=== PATIENT | male | born 1965 | race Caucasian/White ===

== ENCOUNTER 2018-03-18 11:33 | Inpatient (IN) | payer OTHER ==
[~2018-03-18] VITALS: Ht 175.3 cm; Wt 72.6 kg
[2018-03-18 11:35] VITALS: BP 100/65
[2018-03-18 11:58] LABS: ABSOLUTE BASOPHILS 0.1 thou/uL (0.0-0.2); ABSOLUTE LYMPHOCYTES 2.3 thou/uL (0.8-5.3); ABSOLUTE MONOCYTES 0.8 thou/uL (0.0-1.2); ABSOLUTE NEUTROPHILS 7.7 thou/uL (1.6-8.1); BASOPHILS 0.5 %; EOSINOPHILS 0.4 %; HEMATOCRIT 44.7 % (42.0-52.0); HEMOGLOBIN 15.3 gm/dL (14.0-18.0); LYMPHOCYTES 21.5 %; MCH 32.1 pg (26.0-34.0); MCHC 34.2 g/dL (28.0-37.0); MCV 93.9 fL (80.0-100.0); MONOCYTES 7.2 %; MPV 8.4 fl. (7.2-11.1); NUCLEATED RBCS 0 /100WBC; PLATELET COUNT* 251 thou/uL (150-400); POLYS 70.4 %; RBC 4.76 mil/uL (4.50-6.00); RDW-CV 14.5 % (10.5-14.5); WBC 10.9 thou/uL (4.0-11.0)
[2018-03-18 12:10] LABS: APTT 30.6 Seconds (25.0-31.3); PROTIME 10.2 Seconds (9.20-11.50)
[2018-03-18 12:17] LABS: ANION GAP 13 mmol/L (7-16); BUN 44 mg/dL (7-18); CALCIUM 8.2 mg/dL (8.5-10.1); CHLORIDE 100 mmol/L (98-107); CO2 26 mmol/L (21-32); CREATININE 3.9 mg/dL (0.6-1.3); GLUCOSE 114 mg/dL (70-99); POTASSIUM 3.9 mmol/L (3.5-5.1); SODIUM 139 mmol/L (136-145)
[2018-03-18 12:32] LABS: ALBUMIN 3.5 g/dL (3.4-5.0); ALKALINE PHOSPHATASE 148 U/L (46-116); NT-PRO BRAIN NAT PEPTIDE 222 pg/mL (<300); SGOT 21 U/L (15-37); SGPT 22 U/L (30-65); TOTAL BILIRUBIN 0.4 mg/dL (<0.1-1.0); TOTAL PROTEIN 7.3 g/dL (6.4-8.2); TROPONIN-I LEVEL <0.06 ng/mL (<0.06)
[2018-03-18 13:15] VITALS: BP 120/77
[2018-03-18 13:17] VITALS: BP 120/77
[2018-03-18 14:45] LABS: CALCIUM 7.2 mg/dL (8.5-10.1); MAGNESIUM 2.1 mg/dL (1.8-2.4); PHOSPHORUS* 6.2 mg/dL (2.5-4.9)
[2018-03-19 03:23] VITALS: BP 100/63
[2018-03-19 04:19] LABS: HEMATOCRIT 40.6 % (42.0-52.0); HEMOGLOBIN 13.7 gm/dL (14.0-18.0); MCH 32.1 pg (26.0-34.0); MCHC 33.7 g/dL (28.0-37.0); MCV 95.5 fL (80.0-100.0); MPV 8.2 fl. (7.2-11.1); RBC 4.26 mil/uL (4.50-6.00); RDW-CV 14.5 % (10.5-14.5); WBC 9.3 thou/uL (4.0-11.0)
[2018-03-19 04:29] LABS: CALCIUM 7.7 mg/dL (8.5-10.1); CREATININE 1.3 mg/dL (0.6-1.3); MAGNESIUM 2.1 mg/dL (1.8-2.4); POTASSIUM 4.1 mmol/L (3.5-5.1)
[2018-03-19 07:45] VITALS: BP 125/72
--- NOTE | 2018-03-19 14:43 | EKG ---
[place] [address] ELECTROCARDIOGRAM REPORT Name: RACHAELYOKO Room: [address] IN [facility].#: [id number] Admission: 03/18/18 Attend Phys: Tone Zapien, Discharge: Date of : 63 Report #: [id number] THIS REPORT FOR: //name// [facility] ED Test Date: 2018-03-18 Test Time: 11:36:19 Pat Name: YOKO CANO Department: Room: Gender: M [employer]: Ashlie ANDRADE : 1965 Requested By: Edwar Navas Order Number: [id number] MD: Daniel Borjas Measurements Intervals [place] Rate: 104 P: 82 FL: 129 QRS: -76 QRSD: 80 T: 56 QT: 368 QTc: 484 Interpretive Statements Sinus tachycardia Left anterior fascicular block ST elev, probable normal early repol pattern Borderline prolonged QT interval No previous ECG available for comparison Electronically Signed On 03-19-2018 14:43:47 CDT by Daniel Borjas [email or web address] <ELECTRONICALLY SIGNED> By: Daniel Borjas MD, [facility] 03/19/18 1443 1136 [id number] Daniel Borjas MD, [facility] /EPI
[2018-03-19 17:00] VITALS: BP 109/58
[2018-03-19 23:53] VITALS: BP 125/80
[2018-03-20 03:45] LABS: HEMATOCRIT 39.4 % (42.0-52.0); HEMOGLOBIN 13.3 gm/dL (14.0-18.0); MCH 32.3 pg (26.0-34.0); MCHC 33.9 g/dL (28.0-37.0); MCV 95.4 fL (80.0-100.0); MPV 8.9 fl. (7.2-11.1); RBC 4.13 mil/uL (4.50-6.00); WBC 9.2 thou/uL (4.0-11.0)
[2018-03-20 03:56] LABS: CALCIUM 8.1 mg/dL (8.5-10.1); CREATININE 0.9 mg/dL (0.6-1.3); MAGNESIUM 1.6 mg/dL (1.8-2.4); PHOSPHORUS* 2.1 mg/dL (2.5-4.9); POTASSIUM 4.2 mmol/L (3.5-5.1)
[2018-03-20 04:20] VITALS: BP 125/84
[2018-03-20 08:00] VITALS: BP 118/63
[2018-03-20 14:23] VITALS: BP 118/63
--- NOTE | 2018-04-01 13:13 | CON ---
[address] [address] CONSULTATION Name: YOKO CANO Room: [address] M.R.#: [id number] Admission: 03/18/18 Attend Phys: Tone Zapien, Discharge: 03/20/18 Date of : 63 Report #: [id number] THIS REPORT FOR: //name// CC: [facility] physician/PCP Tone Zapien DATE OF SERVICE: 03/19/2018 REQUESTING PHYSICIAN: Tone Zapien MD HISTORY OF PRESENT ILLNESS: The patient is a 52-year-old gentleman with medical history significant for daily use of IV methamphetamine. He is on no medications at home. He has no insurance. Does not work. He was found by bystanders when he was walking on the street and they saw him being unsteady stumbled, falling. They brought him to the Emergency Room, found him to be in heat exhausted with acute kidney injury. His creatinine yesterday was 3.9. His phosphorus was 6.2. CPK was mildly elevated at 378. He was given IV fluids. His creatinine today is down to 1.3, so this is nice recovery. FAMILY HISTORY: Noncontributory. SOCIAL HISTORY: Positive for methamphetamine abuse, tobacco abuse, and alcohol abuse. REVIEW OF SYSTEMS: Positive for being tired and having some discomfort everywhere in the body and suspected from the whole use of methamphetamine. PHYSICAL EXAMINATION: GENERAL: Awake, alert, and oriented, in no acute distress. VITAL SIGNS: Blood pressure is 125/72, heart rate 73, afebrile. HEENT: Pupils round. NECK: Supple. LUNGS: Clear. CARDIOVASCULAR: Regular rate. ABDOMEN: Soft. LOWER EXTREMITIES: No edema. LABORATORY DATA: Report from today revealed serum sodium 142, potassium 4.1, chloride 109, carbon dioxide 27, BUN 25, and creatinine 1.3. ASSESSMENT: A 52-year-old man with methamphetamine abuse, acute kidney injury due to heat exhaustion, dehydration. Renal [place] [address] CONSULTATION Name: YOKO CANO Room: [address] [place] ..#: [id number] Admission: 03/18/18 Attend Phys: Tone Zapien, Discharge: 03/20/18 Date of : 63 Report #: [id number] fluids. Nothing else to offer from my standpoint. He strongly urged to stop using methamphetamine. I will sign off. <ELECTRONICALLY SIGNED> By: Jaylon Jarrell MD 04/01/18 1313 [id number] Jarrell MD /nt
== END 2018-03-20 18:45 | disposition home or self-care (01) | DRG 684 ==
LOC: M.ERS 11:33 → M.TBA-ER 12:47 → M.3W 12:47
PROVIDERS: Family Medicine; ADMIT Family Medicine
DX: N17.9 Acute kidney failure, unspecified (principal); T67.5XXA Heat exhaustion, unspecified, initial encounter; Y93.89 Activity, other specified; F10.10 Alcohol abuse, uncomplicated; J44.9 Chronic obstructive pulmonary disease, unspecified; F15.10 Other stimulant abuse, uncomplicated; F17.210 Nicotine dependence, cigarettes, uncomplicated; E86.0 Dehydration; Y92.89 Other specified places as the place of occurrence of the external cause; Y99.8 Other external cause status; Z88.0 Allergy status to penicillin